=== PATIENT | male | born 1975 | race Caucasian/White ===

== ENCOUNTER 2021-08-07 02:56 | Outpatient (CLI) | payer BC, SELFPAY | END 2021-08-07 02:57 | disposition home or self-care (01) | LOC: LBO 02:56 | PROVIDERS: Visit Provider Psychiatry & Neurology Neurology | DX: R56.9 Unspecified convulsions (principal); Z51.81 Encounter for therapeutic drug level monitoring | CPT/HCPCS: 36415; 80175 ==